=== PATIENT | female | born 1965 | race Caucasian/White ===

== ENCOUNTER 2016-11-23 20:44 | Emergency (ER) | payer MEDICARE, OTHER ==
--- NOTE | ~2016-11-23 | CR20 ---
[facility] A Service of [facility] & [facility] RADIOLOGY TEXT RESULTS PATIENT: ANDRES CAN LOCATION: CFTX : 63 UNIT #: [id number] AGE: [address]: Mehran Camarillo MD SEX: F ORDER DR: [id number] [facility] [address] [place], [place] [address] [id number] E MR#: [id number] Acc #: [id number] NAME: ANDRES CAN : 1965 SEX: F STUDY DATE/TIME: 11/23/2016 20:24 UNIT: [facility] ROOM: STUDY DESCRIPTION: CR Ankle Min 3 Views Lt Attending Physician: Mehran Camarillo M.D. Ordering Physician: Mehran Camarillo M.D. Primary Care Physician: Naomy Rosa A.P.R.N. MEDICAL IMAGING REPORT This report is preliminary unless electronic signature is present EXAM Left ankle 3 views HISTORY Ankle pain and swelling after twisting injury and fall today. FINDINGS 3 views of the left ankle demonstrate transverse fracture at the tip of the lateral malleolus with 2.0 mm separation of the fracture fragment which measures 10.0 mm in maximal dimension. Soft tissue swelling over the lateral malleolus. Remainder of the ankle alignment is satisfactory. Bony hypertrophic changes at the tip of the medial malleolus and along the posterior and plantar margins of the calcaneus. No dislocation. IMPRESSION Transverse fracture through the tip of the lateral malleolus with 2.0 mm separation of the 10.0 mm fracture fragment. Soft tissue swelling over the lateral malleolus. Dictated by... Rolly Fernández M.D. THIS IS AN ELECTRONICALLY VERIFIED REPORT Rolly Fernández M.D. at 11/24/2016 1:58 PM YEVGENIY/felicitas TD: 11/24/2016 13:05 JOB #: [id number] MEDICAL IMAGING REPORT COPY
[~2016-11-23 20:44] MED LIST: ACAI WEIGHT CO1 EACH PO; ADVAIR 250-501 EACH INH; AMARYL PO; AMITRIPTYLINE H75 MG PO; BROMELAIN500 MG PO; CALCIUM ACETAT667 M1 PO; CAYENNE PO; CHROMIUM PO; CINNAMON ALPHA1 EACH PO; CRANBERRY CONC1 EACH PO; CRESTOR5 MG PO; FERRO-TIME325 MG PO; FISH OIL 1,0001 CA2 PO; FLAX SEED OIL1000 M1 PO; FUROSEMIDE40 MG PO; GINGER ROOT550 M1 PO; GRAPE SEED EXT PO; GREEN TEA1 CAP PO; HUMIRA40 MG/0.1 SQ; LEVEMIR FL100 UNIT/1 SQ; LISINOPRIL10 MG PO; MAGNESIUM400 MG PO; MULTI VITAMIN1 EACH PO; NASONEX17 GM; PERCOCET 7.5-31 EACH PO; POTASSIUM CHLO10 ME1 PO; PROAIR HFA8.5 GM IN; PROTONIX PO; ROCALTROL0.5 MC1 PO; SUMATRIPTAN SU100 MG PO; SYNTHROID0.15 MG PO; TUMERIC PO; ULORIC40 MG PO; VICTOZA0.6 MG/0.1 SQ; WELCHOL3.75 GM PO
== END 2016-11-23 21:30 | disposition home or self-care (01) ==
LOC: CFTX 20:44
DX: S93.492A Sprain of other ligament of left ankle, initial encounter (principal); E11.9 Type 2 diabetes mellitus without complications; I10 Essential (primary) hypertension; J45.909 Unspecified asthma, uncomplicated; X58.XXXA Exposure to other specified factors, initial encounter; Y92.009 Unspecified place in unspecified non-institutional (private) residence as the place of occurrence of the external cause
CPT/HCPCS: 29540; 73610; 99283

== ENCOUNTER 2017-02-12 10:45 | Emergency (ER) | payer MEDICARE, OTHER ==
--- NOTE | ~2017-02-12 | CR2 ---
[facility] A Service of [facility] & [facility] RADIOLOGY TEXT RESULTS PATIENT: ANDRES CAN LOCATION: [facility] : 63 UNIT #: [id number] AGE: [address]: Geoffrey Cross MD SEX: F ORDER DR: [id number] [facility] [address] [place], [place] [address] [id number] E MR#: [id number] Acc #: [id number] NAME: ANDRES CAN : 1965 SEX: F STUDY DATE/TIME: 02/12/2017 11:35 UNIT: [facility] ROOM: STUDY DESCRIPTION: CR Abdomen Acute Series Attending Physician: Geoffrey Cross M.D. Ordering Physician: Geoffrey Cross M.D. Primary Care Physician: Naomy Rosa A.P.R.N. MEDICAL IMAGING REPORT This report is preliminary unless electronic signature is present EXAM Acute abdomen series with chest, total of 4 views, 02/12/2017 HISTORY Nausea, vomiting, fever, body aches for 2 days. FINDINGS Survey chest radiograph shows normal heart size. Lungs are clear. Flat and upright views of the abdomen show a lap band in appropriate position. Gas pattern of the abdomen and pelvis is normal. No evidence of organomegaly, mass or free air CONCLUSION Status post lap band. Negative chest and abdomen Dictated by... Aditya Stacy M.D. THIS IS AN ELECTRONICALLY VERIFIED REPORT Aditya Stacy M.D. at 02/12/2017 3:17 PM SHANON/krishna TD: 02/12/2017 14:36 JOB #: [id number] MEDICAL IMAGING REPORT Page 1 of 1 COPY
[2017-02-12] MEDS ORDERED: SYNTHROID137 MCG PO (10:59)
[2017-02-12] MEDS ORDERED: SINGULAIR PO (10:59)
[2017-02-12] MEDS ORDERED: INDERAL20 MG PO (10:59)
[2017-02-12] MEDS ORDERED: FUROSEMIDE40 MG PO (11:00)
[2017-02-12] MEDS ORDERED: OXAYDO7.5 MG PO (11:00)
[2017-02-12] MEDS ORDERED: AMITRIPTYLINE H75 MG PO (11:00)
[2017-02-12] MEDS ORDERED: CALCITRIOL0.5 MCG PO (11:01)
[2017-02-12] MEDS ORDERED: SUMATRIPTAN SU100 MG PO (11:01)
[2017-02-12] MEDS ORDERED: PROTONIX40 M1 PO (11:02)
[2017-02-12] MEDS ORDERED: FERROUS SULFAT325 MG PO (11:02)
[2017-02-12] MEDS ORDERED: CRESTOR5 MG PO (11:03)
[2017-02-12] MEDS ORDERED: WELCHOL3.75 GM PO (11:03)
[2017-02-12] MEDS ORDERED: ADVAIR 250-501 EACH INH (11:03)
[2017-02-12] MEDS ORDERED: MEMANTINE HCL10 MG PO (11:04)
[2017-02-12] MEDS ORDERED: CYMBALTA30 M1 PO (11:04)
[2017-02-12] MEDS ORDERED: PROAIR HFA8.5 GM INH (11:05)
[2017-02-12] MEDS ORDERED: ULORIC40 MG PO (11:05)
[2017-02-12] MEDS ORDERED: XELJANZ5 MG PO (11:06)
[2017-02-12] MEDS ORDERED: TRULICITY0.75 MG/0. SUBQ (11:06)
[2017-02-12 12:37] LABS: BASOPHIL% 0.2 % (0-2.5); EOSINOPHIL% 0.2 % (0.0-7.0); HEMATOCRIT 41.6 % (35.0-45.0); HEMOGLOBIN 13.4 gm/dL (12.0-16.0); LYMPHOCYTE# 0.5 X10e3 (1.0-3.5); LYMPHOCYTE% 8.6 % (17.0-45.0); MEAN CELL VOLUME 86.1 FL (83-96); MEAN CORPUSCULAR HEMOGLOBIN 27.8 PG (28-34); MEAN CORPUSCULAR HGB CONC 32.3 g/dL (30-36); MEAN PLATELET VOLUME 9.7 FL (6.5-11.5); MONOCYTE# 0.5 X10e3 (0-1.0); NEUTROPHIL# 4.9 X10e3 (1.5-7.1); PLATELET COUNT 197 X10e3 (140-420); RED BLOOD COUNT 4.84 X10e (3.90-5.30); RED CELL DISTRIBUTION WIDTH 14.5 % (11.0-15.5); WHITE BLOOD COUNT 5.9 X10e3 (4.0-10.5)
[2017-02-12 12:44] LABS: DIFF IND NO
[2017-02-12 13:03] LABS: BILIRUBIN, DIRECT 0.1 mg/dL (0.0-0.2); BILIRUBIN,TOTAL 0.1 mg/dL (0.2-2.0); BUN/CREATININE RATIO 15.71; CREATININE SERUM 1.4 mg/dL (0.6-1.4); GLOM FILT RATE Estimated 43.1 mL/min (>60); POTASSIUM 3.9 mmol/L (3.5-5.1); PROTEIN TOTAL SERUM 7.7 g/dL (6.0-8.3)
== END 2017-02-12 14:40 | disposition home or self-care (01) ==
LOC: CED 10:45
PROVIDERS: Emergency Medicine
DX: R11.10 Vomiting, unspecified (principal); E11.9 Type 2 diabetes mellitus without complications; Z88.2 Allergy status to sulfonamides; Z88.8 Allergy status to other drugs, medicaments and biological substances
CPT/HCPCS: 36415; 74022; 80048; 80076; 83690; 85025; 85379; 94640; 96361; 96374; 99284; J2405

== ENCOUNTER → 2017-04-10 | Outpatient (CLI) | payer MEDICARE ==
[~2017-04-10] MED LIST changes: +CALCITRIOL0.5 MCG PO; +CYMBALTA30 M1 PO; +FERROUS SULFAT325 MG PO; +INDERAL20 MG PO; +MEMANTINE HCL10 MG PO; +OXAYDO7.5 MG PO; +OXYCODONE-ACET1 EAC1 PO; +PROAIR HFA8.5 GM INH; +PROTONIX40 M1 PO; +SINGULAIR PO; +SYNTHROID137 MCG PO; +TRULICITY0.75 MG/0. SUBQ; +XELJANZ5 MG PO
[2017-04-10 12:22] LABS: BASOPHIL% 0.5 % (0-2.5); EOSINOPHIL# 0.1 X10e3 (0-0.7); EOSINOPHIL% 0.7 % (0.0-7.0); HEMATOCRIT 37.2 % (35.0-45.0); HEMOGLOBIN 12.1 gm/dL (12.0-16.0); LYMPHOCYTE# 2.2 X10e3 (1.0-3.5); MEAN CELL VOLUME 86.2 FL (83-96); MEAN CORPUSCULAR HGB CONC 32.5 g/dL (30-36); MEAN PLATELET VOLUME 9.5 FL (6.5-11.5); MONOCYTE# 0.7 X10e3 (0-1.0); MONOCYTE% 7.9 % (3.0-12.0); NEUTROPHIL# 6.1 X10e3 (1.5-7.1); NEUTROPHIL% 66.9 % (40-75); PLATELET COUNT 234 X10e3 (140-420); RED BLOOD COUNT 4.32 X10e (3.90-5.30); RED CELL DISTRIBUTION WIDTH 14.3 % (11.0-15.5); WHITE BLOOD COUNT 9.1 X10e3 (4.0-10.5)
[2017-04-10 12:25] LABS: DIFF IND NO
[2017-04-10 13:04] LABS: ALBUMIN SERUM 4.2 g/dL (3.5-5.0); BILIRUBIN,TOTAL 0.3 mg/dL (0.2-2.0); BUN/CREATININE RATIO 7.85; CALCIUM SERUM 8.3 mg/dL (8.4-10.2); CREATININE SERUM 1.4 mg/dL (0.6-1.4); GLOM FILT RATE Estimated 43.1 mL/min (>60); POTASSIUM 3.3 mmol/L (3.5-5.1); PROTEIN TOTAL SERUM 7.3 g/dL (6.0-8.3)
== END | disposition home or self-care (01) ==
LOC: CLAB 10:51
PROVIDERS: Nurse Practitioner Family
DX: E11.65 Type 2 diabetes mellitus with hyperglycemia (principal); N28.9 Disorder of kidney and ureter, unspecified; E03.9 Hypothyroidism, unspecified; M25.50 Pain in unspecified joint
CPT/HCPCS: 80053; 82306; 85025; 85652; 86140; 86200; 86430

== ENCOUNTER → 2017-04-10 | Outpatient (CLI) | payer MEDICARE ==
[2017-04-10 13:08] LABS: BUN/CREATININE RATIO 7.85; CREATININE SERUM 1.4 mg/dL (0.6-1.4); GLOM FILT RATE Estimated 43.1 mL/min (>60); MAGNESIUM 1.6 mg/dL (1.6-3.0); POTASSIUM 3.3 mmol/L (3.5-5.1)
[2017-04-10 13:09] LABS: CALCIUM SERUM 8.3 mg/dL (8.4-10.2); PROTEIN TOTAL SERUM 7.3 g/dL (6.0-8.3)
[2017-04-10 13:10] LABS: ALBUMIN SERUM 4.2 g/dL (3.5-5.0); BILIRUBIN,TOTAL 0.3 mg/dL (0.2-2.0)
== END | disposition home or self-care (01) ==
LOC: CLAB 10:46
DX: E78.00 Pure hypercholesterolemia, unspecified (principal); E11.9 Type 2 diabetes mellitus without complications
CPT/HCPCS: 36415; 80053; 80061; 82306; 83036; 83520; 83735; 85025; 85652; 86140; 86200; 86430

== ENCOUNTER 2017-05-13 05:33 | Inpatient (IN) | payer MEDICARE ==
[~2017-05-13] VITALS: Ht 162.6 cm; Wt 102.0 kg
--- NOTE | ~2017-05-13 | DS ---
Unit #: [id number] #: [id number] Patient: ANDRES CAN [id number] [address] [address] [id number] I MR#: [id number] NAME: ANDRES CAN ROOM: 239 Age: 51 Sex: F Admission Date: 05/13/2017 : 1965 Discharge Date: 05/17/2017 Attending Physician: Eduardo Guerra M.D. DISCHARGE SUMMARY PRIMARY REASON FOR ADMISSION Partial small bowel obstruction. HISTORY OF PRESENT ILLNESS The patient is a 51-year-old woman who presented to the emergency room with a 24-hour history of colicky abdominal pain associated with dry heaves and diarrhea. She denies any fevers, chills, hematemesis, or hematochezia. A CT scan showed a possible small bowel obstruction presumably due to adhesions. She does have a history of vaginal hysterectomy, tubal ligation, and Lap-Band placement. PHYSICAL EXAMINATION See admission H and P. HOSPITAL COURSE The patient was admitted. A nasogastric tube was placed. Shortly after admission, a small bowel followthrough was performed which was essentially benign. The nasogastric tube was removed. Patient was passing flatus. She was started on clear liquids and advanced to a regular diet which she tolerated well. She was deemed ready for discharge home on May 17. DISPOSITION Home. CONDITION Good. Dictated by... Juancarlos Villavicencio/cammie TD: 05/19/2017 14:09 JOB #: [id number] Unit #: [id number] #: [id number] Patient: ANDRES CAN DISCHARGE SUMMARY Page 1 of 1 X Edurado Guerra DISCHARGE SUMMARY
--- NOTE | ~2017-05-13 | CT4 ---
[facility] A Service of [facility] & [facility] RADIOLOGY TEXT RESULTS PATIENT: ANDRES CAN LOCATION: C2A 239-01 : 63 UNIT #: [id number] AGE: [address]: Eduardo Guerra SEX: F ORDER DR: [id number] [facility] [address] [place], [place] [address] [id number] I MR#: [id number] Acc #: [id number] NAME: ANDRES CAN : 1965 SEX: F STUDY DATE/TIME: 05/13/2017 6:54 UNIT: C2A ROOM: 239 STUDY DESCRIPTION: CT Abd and Pelv Wo Cont Attending Physician: Eduardo Guerra M.D. Ordering Physician: Griffin New M.D. Primary Care Physician: Primary Care Physician No MEDICAL IMAGING REPORT This report is preliminary unless electronic signature is present EXAM CT abdomen and pelvis without contrast 05/13/2017 HISTORY 51-year-old female abdominal cramping, vomiting, nausea, diarrhea for 1 day. Generalized abdominal pain. Stage III renal disease. COMPARISON Acute abdominal series 02/12/2017. No prior CT abdomen at this institution for comparison. PROCEDURE 3 mm noncontrast axial images through the abdomen and pelvis. Enteric contrast was not administered. Sagittal and coronal reformatted images were obtained. This CT examination was performed with one or more of the following radiation dose reduction techniques: automatic exposure control, adjustment of mA and/or kV according to patient size, and iterative reconstruction. FINDINGS ABDOMEN: There are multiple dilated small bowel loops with air-fluid levels. There appears to be a transition zone within the right mid abdomen, which is worrisome for a small bowel obstruction, potentially due to adhesion. The more distal small bowel in the right lower abdomen is decompressed. Mild colonic stool burden is present. No free air, pneumatosis or free fluid is identified. The liver is diffusely steatotic. Gastric band device is in place. Gallbladder, spleen, pancreas, adrenals and kidneys have an unremarkable noncontrast appearance. Appendix appears normal. PELVIS: Hysterectomy. Urinary bladder and rectum are normal. No pelvic adenopathy or free fluid is identified. STS. [facility] A Service of [facility] & [facility] RADIOLOGY TEXT RESULTS PATIENT: ANDRES CAN LOCATION: [facility] 239-01 : 63 UNIT #: [id number] AGE: [address]: Eduardo Guerra SEX: F ORDER DR: No acute or suspicious osseous abnormalities. Mild lower lumbar facet arthropathy. IMPRESSION 1. Findings consistent with the appearance of small bowel obstruction with transition zone in the right lower abdomen, potentially due to adhesion. 2. Hepatic steatosis. 3. Gastric band device in place. 4. Cholecystectomy. 5. Hysterectomy. Dictated by... Lexus Franco M.D. THIS IS AN ELECTRONICALLY VERIFIED REPORT Lexus Franco M.D. at 05/15/2017 8:51 AM BRITTANIE/carmencita TD: 05/13/2017 12:18 JOB #: [id number] MEDICAL IMAGING REPORT Page 1 of 1 COPY
--- NOTE | ~2017-05-13 | CR236 ---
[facility] A Service of [facility] & [facility] & [facility] RADIOLOGY TEXT RESULTS PATIENT: ANDRES CAN LOCATION: C2A 239-01 : 63 UNIT #: [id number] AGE: [address]: Eduardo Guerra SEX: F ORDER DR: [id number] [facility] [address] [place], [place] [address] [id number] I MR#: [id number] Acc #: [id number] NAME: ANDRES CAN : 1965 SEX: F STUDY DATE/TIME: 05/15/2017 12:00 UNIT: C2A ROOM: 239 STUDY DESCRIPTION: CR Small Bowel Sbft W Films Attending Physician: Eduardo Guerra M.D. Ordering Physician: Heri Patterson M.D. Primary Care Physician: No Primary Care Physician MEDICAL IMAGING REPORT This report is preliminary unless electronic signature is present EXAM Single view of the abdomen CLINICAL HISTORY Requested small bowel follow-through. FINDINGS A single overhead image was obtained about 15 minutes after ingestion of oral contrast and the patient was unable to continue the exam. This single view shows a normal bowel gas pattern and normal opacified proximal small bowel. Incomplete exam. Dictated by... Ventura Giles M.D. THIS IS AN ELECTRONICALLY VERIFIED REPORT Ventura Giles M.D. at 05/19/2017 9:09 AM SEFERINO/zack TD: 05/16/2017 08:36 JOB #: [id number] MEDICAL IMAGING REPORT Page 1 of 1 COPY
--- NOTE | ~2017-05-13 | CR4 ---
[facility] A Service of [facility] & [facility] RADIOLOGY TEXT RESULTS PATIENT: ANDRES CAN LOCATION: C2A 239-01 : 63 UNIT #: [id number] AGE: [address]: Eduardo Guerra SEX: F ORDER DR: [id number] [facility] [address] [place], [place] [address] [id number] I MR#: [id number] Acc #: [id number] NAME: ANDRES CAN : 1965 SEX: F STUDY DATE/TIME: 05/16/2017 08:00 UNIT: C2A ROOM: 239 STUDY DESCRIPTION: CR Abdomen Flat Upright or Dec Attending Physician: Eduardo Guerra M.D. Ordering Physician: Geoffrey Castillo M.D. Primary Care Physician: No Primary Care Physician MEDICAL IMAGING REPORT This report is preliminary unless electronic signature is present EXAM Abdomen supine and upright, 05/16/2017, 0800 hours. CLINICAL HISTORY Small bowel obstruction with symptoms for 3 days. COMPARISON Small bowel follow through, 05/15/2017. FINDINGS Supine and upright views demonstrate clothing artifact. There is a Lap-Band present. There is oral contrast material present which has progressed from the proximal small bowel on the single image from small bowel follow through 05/15/2017. There is no contrast within the colon. There are gas-filled mildly prominent loops of small bowel with a few air-fluid levels on the upright film which appear to be both within the small bowel and colon. IMPRESSION The oral contrast material administered for the attempted small bowel follow through 05/15/2017, has progressed distally and it is clearly present within distal small bowel and colon. There is gaseous distension of unopacified loops of small bowel with some air-fluid levels seen on the upright film which appear to be both in the small bowel and colon. Findings do not support in obstruction given the passage of contrast into the colon. Findings favor adynamic ileus. Dictated by... Syl Christine M.D. THIS IS AN ELECTRONICALLY VERIFIED REPORT Syl Christine M.D. at 05/17/2017 12:31 PM SMM/nuria [facility] A Service of [facility] & [facility] RADIOLOGY TEXT RESULTS PATIENT: ANDRES CAN LOCATION: A 239-01 : 63 UNIT #: [id number] AGE: [address]: Eduardo Guerra SEX: F ORDER DR: TD: 05/16/2017 18:10 JOB #: [id number] MEDICAL IMAGING REPORT Page 1 of 1 COPY
--- NOTE | ~2017-05-13 | CO ---
Unit #: [id number] #: [id number] Patient: ANDRES LOERA [id number] [address] [address] [id number] I MR#: [id number] NAME: ANDRES LOERA ROOM: 239 Age: 51 Sex: F Admission Date: 05/13/2017 : 1965 Attending Physician: Eduardo Guerra M.D. Primary Care Physician: Primary Care Physician No Consultation Date: 05/13/2017 CONSULTATION REPORT HISTORY OF PRESENT ILLNESS Ms. Loera is a 51-year-old female, who for the last 24 to 36 hours has been having colicky abdominal pain associated with dry heaves and diarrhea. She denied any fever, chills, hematemesis, hematochezia, or melena. She came to the emergency room and a CT scan showed a possible small bowel obstruction. It was centered in the right lower quadrant presumably due to adhesions. She does have a history of vaginal hysterectomy, tubal ligation, and Lap-Band placement. PAST MEDICAL HISTORY Hypertension, diabetes, paraesophageal hernia, rheumatoid arthritis, stage 3 kidney disease, previous tooth extraction, thyroidectomy, parathyroidectomy, previous cholecystectomy. ALLERGIES She is allergic to nonsteroidal anti-inflammatory agents, sulfa, Phenergan, and metformin. HOME MEDICATIONS Include Synthroid, Singulair, Inderal, Lasix, Elavil, calcitriol, sumatriptan, ferrous sulfate, Protonix, WelChol, Advair, Crestor, memantine, Cymbalta, ProAir, Uloric, Xeljanz, Trulicity, oxycodone. FAMILY HISTORY Diabetes and hypertension. SOCIAL HISTORY Nonsmoker. Nondrinker. REVIEW OF SYSTEMS As above. PHYSICAL EXAMINATION VITAL SIGNS: Temperature is 99.9, pulse 101, respirations 20, blood pressure 147/89. GENERAL: She is awake, alert, and oriented. Does not appear to be in acute distress. NG tube has had minimal output. HEENT: No carotid bruits. No scleral icterus. CARDIAC: Regular rhythm without murmur. LUNGS: Clear. ABDOMEN: Nondistended, nontender. No involuntary or voluntary guarding. EXTREMITIES: No edema. NEUROLOGIC: Grossly intact. No skin rashes or lesions. Unit #: [id number] #: [id number] Patient: ANDRES LOERA DIAGNOSTIC STUDIES LABORATORY RESULTS: BUN and creatinine 13 and 1.6, which is baseline. Electrolytes are within normal limits except for calcium is 6.9. Liver chemistries; total bilirubin 0.5, AST and ALT 52 and 68. Amylase 11, lipase 16. Hemoglobin A1c 6.2. White count 59406, hemoglobin 13.9, and platelets 208,000. Urinalysis is negative for infection. IMAGING STUDIES: CT scan as discussed. ASSESSMENT AND PLAN Possible partial small bowel obstruction versus gastroenteritis. The patient will be admitted and hydrated. NG has been placed for decompression. Stool studies have been ordered. We will stimulate her bowel and repeat her films in the morning and consider small-bowel follow-through if she does not have complete resolution of her bowel obstruction. Thank you very much. Dictated by... Juancarlos Kaur/radha TD: 05/14/2017 02:06 JOB #: [id number] CONSULTATION REPORT Page 1 of 1 X Geoffrey Castillo MD X CONSULTATION REPORT
--- NOTE | ~2017-05-13 | CR4 ---
[facility] A Service [facility] RADIOLOGY TEXT RESULTS PATIENT: ANDRES CAN LOCATION: C2A : 63 UNIT #: [id number] AGE: [address]: Eduardo Guerra SEX: F ORDER DR: [id number] [id number] [place], [place] [address] [id number] I MR#: [id number] Acc #: [id number] NAME: ANDRES CAN : 1965 SEX: F STUDY DATE/TIME: 05/14/2017 7:38 UNIT: [facility] ROOM: 239 STUDY DESCRIPTION: CR Abdomen Flat Upright or Dec Attending Physician: Eduardo Guerra M.D. Ordering Physician: Eduardo Guerra M.D. Primary Care Physician: Primary Care Physician No MEDICAL IMAGING REPORT This report is preliminary unless electronic signature is present EXAM Flat and upright abdomen INDICATIONS Abdominal pain, cramping, diarrhea and nausea for [address] showing small bowel obstruction. COMPARISON CT scan from yesterday. FINDINGS Redemonstrated dilated loops of small bowel with air-fluid levels on upright view most consistent with small bowel obstruction. The overall appearance does not appear significantly changed. Patient has a lap-band in place. There is also an NG tube in place and a portion of the tube is looping above the patient's LAP-band. IMPRESSION No significant change in appearance of the bowel gas pattern consistent with small bowel obstruction. Dictated by... Scott Huff M.D. THIS IS AN ELECTRONICALLY VERIFIED REPORT Scott Huff M.D. at 05/14/2017 5:28 PM ARS/chirag TD: 05/14/2017 09:04 JOB #: [id number] [facility] A Service [facility] RADIOLOGY TEXT RESULTS PATIENT: ANDRES CAN LOCATION: C2A : 63 UNIT #: [id number] AGE: [address]: Eduardo Guerra SEX: F ORDER DR: MEDICAL IMAGING REPORT Page 1 of 1 COPY
--- NOTE | ~2017-05-13 | CR2 ---
[facility] A Service of [facility] & [facility] RADIOLOGY TEXT RESULTS PATIENT: ANDRES CAN LOCATION: C2A 239-01 : 63 UNIT #: [id number] AGE: [address]: Eduardo Guerra SEX: F ORDER DR: [id number] [facility] [address] [place], [place] [address] [id number] I MR#: [id number] Acc #: [id number] NAME: ANDRES CAN : 1965 SEX: F STUDY DATE/TIME: 05/15/2017 7:32 UNIT: C2A ROOM: 239 STUDY DESCRIPTION: CR Abdomen Acute Series Attending Physician: Eduardo Guerra M.D. Ordering Physician: Heri Patterson M.D. Primary Care Physician: Primary Care Physician No MEDICAL IMAGING REPORT This report is preliminary unless electronic signature is present EXAM Acute abdominal series 05/15/2017 HISTORY Abdomen pain, nausea, vomiting, diarrhea. 3 days duration. FINDINGS AP radiograph of the chest is presented with supine and upright radiographs of the abdomen and pelvis. Comparison abdominal radiographs 05/14/2017. Chest radiograph is poor in quality. Clothing artifacts overlie relevant anatomy. Heart upper limits of normal in size. Mediastinal contours normal overall. The lungs are well inflated. Linear scarring or atelectasis left lung base. Lungs otherwise clear. No pleural effusion or pneumothorax. No suspicious nodule. Lap-Band device in place. No change. Band component appropriately oriented at level of gastroesophageal junction. Catheter component and port component appear radiographically intact. Interval removal of enteric tube. Bowel gas pattern abnormal. Abnormally dilated loops of small bowel disproportionately dilated relative to colonic caliber. Small bowel loops measure up to about 3.5 cm in diameter. Air and stool are seen in colon. The disproportionate dilatation of small bowel raises concern for possible partial small bowel obstruction. There is no free air. Where visible, the solid organ contours are unremarkable. Small bowel and colon could be further evaluated with CT examination, preferably with enteric contrast or with standard small-bowel follow-through. Bony structures show no acute abnormality. Dictated by... Aditya Castro M.D. STS. [facility] A Service of [facility] & [facility] RADIOLOGY TEXT RESULTS PATIENT: ANDRES CAN LOCATION: [facility] 239- : 63 UNIT #: [id number] AGE: [address]: Eduardo Guerra SEX: F ORDER DR: THIS IS AN ELECTRONICALLY VERIFIED REPORT Aditya Castro M.D. at 05/16/2017 5:54 PM Ty TD: 05/15/2017 09:24 JOB #: [id number] MEDICAL IMAGING REPORT Page 1 of 1 COPY
--- NOTE | ~2017-05-13 | CR7 ---
[facility] A Service of [place] & [facility] RADIOLOGY TEXT RESULTS PATIENT: ANDRES CAN LOCATION: C2A 239-01 : 63 UNIT #: [id number] AGE: [address]: Eduardo Guerra SEX: F ORDER DR: [id number] [facility] [address] [place], [place] [address] [id number] I MR#: [id number] Acc #: [id number] NAME: ANDRES CAN : 1965 SEX: F STUDY DATE/TIME: 05/14/2017 8:21 UNIT: C2A ROOM: 239 STUDY DESCRIPTION: CR Abdomen Single AP View Attending Physician: Eduardo Guerra M.D. Ordering Physician: Aditya Raphael M.D. Primary Care Physician: No Primary Care Physician MEDICAL IMAGING REPORT This report is preliminary unless electronic signature is present EXAM Single limited AP view of the abdomen. INDICATIONS 51-year-old female with history of a small bowel obstruction. She presented for a Gastrografin small bowel followthrough via the NG tube. The fluoroscopy time was 2.4 minutes and 1 fluoroscopic image was taken. FINDINGS Noted on the outsole tacker image from earlier today was that the patient's NG tube is looped above the LAP-band and the side hole of the NG tube is located above the LAP-band. Because of this, if Gastrografin was administered, a large portion of it would be administered into the esophagus and the patient would be at marked risk for aspiration. Therefore, I attempted to reduce the looped within the NG tube, but I was unsuccessful in reducing the loop and advancing the tube. I offered to remove and replace the tube, but the patient refused. The Gastrografin small bowel followthrough was therefore not performed. IMPRESSION Patient's a NG tube loops above her lap-band with the side-hole of the NG tube located above the LAP-band and, therefore, cannot perform a small bowel followthrough injection through the NG tube has a large amount of contrast would leave the side hole and enter the esophagus and the patient would be at risk for aspiration. I offered to remove and replace the NG tube, but the patient refused. I did try to reduce the loop and advance the tube further into the stomach so that both the side hole and end hole of the tube would be in the stomach below the LAP-band, but this was unsuccessful. Dictated by... Scott Huff M.D. [facility] A Service of [facility] RADIOLOGY TEXT RESULTS PATIENT: ANDRES CAN LOCATION: [facility] 239- : 63 UNIT #: [id number] AGE: [address]: Eduardo Guerra SEX: F ORDER DR: THIS IS AN ELECTRONICALLY VERIFIED REPORT Scott Huff M.D. at 05/14/2017 5:29 PM WEN/amy TD: 05/14/2017 12:22 JOB #: [id number] MEDICAL IMAGING REPORT Page 1 of 1 COPY
[~2017-05-13 05:33] MED LIST changes: -OXYCODONE-ACET1 EAC1 PO
[2017-05-13 07:31] LABS: BASOPHIL% 0.3 % (0-2.5); DIFF IND NO; EOSINOPHIL% 0.4 % (0.0-7.0); HEMATOCRIT 42.3 % (35.0-45.0); HEMOGLOBIN 13.9 gm/dL (12.0-16.0); LYMPHOCYTE# 1.3 X10e3 (1.0-3.5); LYMPHOCYTE% 10.6 % (17.0-45.0); MEAN CORPUSCULAR HEMOGLOBIN 28.4 PG (28-34); MEAN PLATELET VOLUME 9.4 FL (6.5-11.5); MONOCYTE# 1.2 X10e3 (0-1.0); MONOCYTE% 9.8 % (3.0-12.0); NEUTROPHIL# 9.4 X10e3 (1.5-7.1); NEUTROPHIL% 78.9 % (40-75); PLATELET COUNT 208 X10e3 (140-420); RED BLOOD COUNT 4.92 X10e (3.90-5.30); RED CELL DISTRIBUTION WIDTH 14.1 % (11.0-15.5); WHITE BLOOD COUNT 11.9 X10e3 (4.0-10.5)
[2017-05-13 07:57] LABS: ALBUMIN SERUM 4.7 g/dL (3.5-5.0); BILIRUBIN, DIRECT 0.1 mg/dL (0.0-0.2); BILIRUBIN,INDIRECT 0.4 mg/dL (0.0-0.9); BILIRUBIN,TOTAL 0.5 mg/dL (0.2-2.0); BUN/CREATININE RATIO 8.12; CALCIUM SERUM 6.9 mg/dL (8.4-10.2); CREATININE SERUM 1.6 mg/dL (0.6-1.4); GLOM FILT RATE Estimated 36.7 mL/min (>60); POTASSIUM 3.6 mmol/L (3.5-5.1); PROTEIN TOTAL SERUM 8.4 g/dL (6.0-8.3)
[2017-05-13 08:00] LABS: URINE SOURCE CLEAN CATCH
[2017-05-13 08:05] LABS: URINE APPEARANCE CLEAR; URINE BILIRUBIN NEG (NEG); URINE BLOOD NEG (NEG); URINE COLOR YELLOW; URINE GLUCOSE NEG (NEG); URINE KETONE NEG (NEG); URINE LEUKOCYTE ESTERASE NEG (NEG); URINE NITRATE NEG (NEG); URINE PH 5.5 (5-8); URINE PROTEIN NEG (NEG); URINE SPECIFIC GRAVITY 1.008 (1.003-1.035); URINE UROBILINOGEN 0.2 MG/DL (NEG)
[2017-05-13 08:07] LABS: CULTURE INDICATED? NO
[2017-05-13] MEDS ORDERED: OXYCODONE-ACET1 EAC1 PO (08:38)
[2017-05-14 12:11] LABS: CREATININE SERUM 1.5 mg/dL (0.6-1.4); GLOM FILT RATE Estimated 39.7 mL/min (>60); POTASSIUM 3.9 mmol/L (3.5-5.1)
[2017-05-14 12:25] LABS: MAGNESIUM 1.3 mg/dL (1.6-3.0); PHOSPHOROUS 3.3 mg/dL (2.5-4.6)
[2017-05-14 13:52] LABS: HEMATOCRIT 41.7 % (35.0-45.0); HEMOGLOBIN 13.4 gm/dL (12.0-16.0); MEAN CELL VOLUME 86.3 FL (83-96); MEAN CORPUSCULAR HEMOGLOBIN 27.6 PG (28-34); MEAN PLATELET VOLUME 9.2 FL (6.5-11.5); RED BLOOD COUNT 4.83 X10e (3.90-5.30); RED CELL DISTRIBUTION WIDTH 14.3 % (11.0-15.5); WHITE BLOOD COUNT 12.5 X10e3 (4.0-10.5)
== END 2017-05-17 15:30 | disposition home or self-care (01) | DRG 390 ==
LOC: CED 05:33 → CEDOF 08:40 → CED 09:17 → C2A 11:51 → CEDOF 11:51 → C2A 05-17 15:30
PROVIDERS: Emergency Medicine; Specialist; Surgery
DX: K56.5 Intestinal adhesions [bands] with obstruction (postinfection) (principal); E11.22 Type 2 diabetes mellitus with diabetic chronic kidney disease; N18.3 Chronic kidney disease, stage 3 (moderate); I12.9 Hypertensive chronic kidney disease with stage 1 through stage 4 chronic kidney disease, or unspecified chronic kidney disease; M06.9 Rheumatoid arthritis, unspecified; Z83.3 Family history of diabetes mellitus; Z82.49 Family history of ischemic heart disease and other diseases of the circulatory system; Z90.710 Acquired absence of both cervix and uterus; Z90.49 Acquired absence of other specified parts of digestive tract; Z98.51 Tubal ligation status; Z98.84 Bariatric surgery status
CPT/HCPCS: 36415; 51701; 74000; 74020; 74022; 74176; 74250; 80048; 80076; 81003; 82150; 82274; 82947; 83630; 83690; 83735; 84100; 84443; 84703; 85025; 85027; 87045; 87427; 87493; 87899; 94640; 94664; 94760; 96361; 96374; 96376; 99291; C9113; J2270; J2405

== ENCOUNTER 2017-05-17 19:23 | Emergency (ER) | payer MEDICARE ==
[~2017-05-17] VITALS: Ht 162.6 cm; Wt 102.0 kg
--- NOTE | ~2017-05-17 | EKG ---
PATIENT: ANDRES CAN UNIT #: [id number] Ventricular Rate: 91 BPM Atrial Rate: 91 BPM P-R Interval: 150 ms QRS Duration: 84 ms Q-T Interval: 392 ms QTC Calculation(Bezet): 482 ms P [place]: 36 degrees Calculated R [place]: -55 degrees Calculated T [place]: 19 degrees Diagnosis Line: Normal sinus rhythm Diagnosis Line: Left anterior fascicular block Diagnosis Line: Nonspecific T wave abnormality Diagnosis Line: Abnormal ECG Diagnosis Line: When compared with ECG of 10-MAR-2015 08:58, Diagnosis Line: No significant change was found Diagnosis Line: Confirmed by JACKI CERDA MD ([id number]) on Diagnosis Line: 05/19/2017 4:54:48 PM INTERPRETING MD: HOA
--- NOTE | ~2017-05-17 | CR2 ---
[facility] A Service of [facility] RADIOLOGY TEXT RESULTS PATIENT: ANDRES CAN LOCATION: [facility] : 63 UNIT #: [id number] AGE: [address]: Oh De Leon MD SEX: F ORDER DR: [id number] [facility]. [place], [place] [address] [id number] E MR#: [id number] Acc #: [id number] NAME: ANDRES CAN : 1965 SEX: F STUDY DATE/TIME: 05/17/2017 20:05 UNIT: [facility] ROOM: STUDY DESCRIPTION: CR Abdomen Acute Series Attending Physician: Oh De Leon M.D. Ordering Physician: Oh De Leon M.D. Primary Care Physician: Primary Care Physician No MEDICAL IMAGING REPORT This report is preliminary unless electronic signature is present EXAM Acute abdominal series, 05/17/2017 COMPARISON Abdomen 2 views, 05/16/2017 HISTORY Abdominal pain, nausea and vomiting followed by diarrhea for 5 days. FINDINGS Frontal view of the chest was obtained. Lungs are well aerated. Heart, mediastinum and bones are unremarkable. Four images of two views of the abdomen were obtained. There are dilated bowel loops noted with contrast in the right and transverse colon. Degenerative changes are noted in the spine. IMPRESSION 1. No acute cardiopulmonary disease. 2. There are some dilated bowel loops involving small and large bowel. Though there could be possibility for bowel obstruction involving the small bowel, given that there is oral contrast in the right colon and transverse colon, it is not a complete obstruction. Continued follow-up is suggested. No obvious free air is noted under the diaphragm. The patient has had Lap-Band surgery done. The angle between the vertical midline axis of the adjacent spine and the long axis of the Lap-Band is 42 degrees. Dictated by.Olivia. Fredi Graf M.D. THIS IS AN ELECTRONICALLY VERIFIED REPORT [facility] A Service [facility] RADIOLOGY TEXT RESULTS PATIENT: ANDRES CAN LOCATION: [place] : 63 UNIT #: [id number] AGE: [address]: Oh De Leon MD SEX: F ORDER DR: Fredi Graf M.D. at 05/18/2017 9:16 PM CPR/felicitas TD: 05/18/2017 20:15 JOB #: [id number] MEDICAL IMAGING REPORT Page 1 of 1 COPY
[~2017-05-17 19:23] MED LIST changes: +OXYCODONE-ACET1 EAC1 PO
[2017-05-17 20:26] LABS: BASOPHIL% 0.2 % (0-2.5); EOSINOPHIL% 0.2 % (0.0-7.0); HEMATOCRIT 40.5 % (35.0-45.0); HEMOGLOBIN 13.1 gm/dL (12.0-16.0); LYMPHOCYTE# 1.4 X10e3 (1.0-3.5); LYMPHOCYTE% 13.7 % (17.0-45.0); MEAN CELL VOLUME 86.3 FL (83-96); MEAN CORPUSCULAR HGB CONC 32.4 g/dL (30-36); MEAN PLATELET VOLUME 9.6 FL (6.5-11.5); MONOCYTE# 1.2 X10e3 (0-1.0); MONOCYTE% 11.6 % (3.0-12.0); NEUTROPHIL# 7.5 X10e3 (1.5-7.1); NEUTROPHIL% 74.3 % (40-75); PLATELET COUNT 230 X10e3 (140-420); RED BLOOD COUNT 4.69 X10e (3.90-5.30); RED CELL DISTRIBUTION WIDTH 14.2 % (11.0-15.5); WHITE BLOOD COUNT 10.1 X10e3 (4.0-10.5)
[2017-05-17 20:32] LABS: DIFF IND NO
[2017-05-17 20:53] LABS: ALBUMIN SERUM 4.2 g/dL (3.5-5.0); BILIRUBIN, DIRECT 0.1 mg/dL (0.0-0.2); BILIRUBIN,INDIRECT 0.7 mg/dL (0.0-0.9); BILIRUBIN,TOTAL 0.8 mg/dL (0.2-2.0); CREATININE SERUM 1.4 mg/dL (0.6-1.4); GLOM FILT RATE Estimated 43.1 mL/min (>60); POTASSIUM 3.4 mmol/L (3.5-5.1); PROTEIN TOTAL SERUM 8.2 g/dL (6.0-8.3)
[2017-05-17 20:56] LABS: CALCIUM SERUM 5.8 mg/dL (8.4-10.2)
[2017-05-18 00:37] LABS: URINE SOURCE CLEAN CATCH
[2017-05-18 00:41] LABS: URINE APPEARANCE CLEAR; URINE BILIRUBIN NEG (NEG); URINE BLOOD NEG (NEG); URINE COLOR YELLOW; URINE GLUCOSE NEG (NEG); URINE KETONE NEG (NEG); URINE LEUKOCYTE ESTERASE NEG (NEG); URINE NITRATE NEG (NEG); URINE PROTEIN TRACE (NEG); URINE UROBILINOGEN 0.2 MG/DL (NEG)
[2017-05-18 00:42] LABS: CULTURE INDICATED? NO
== END 2017-05-18 01:20 | disposition home or self-care (01) ==
LOC: CED 19:23
PROVIDERS: Emergency Medicine
DX: E87.6 Hypokalemia (principal); I12.9 Hypertensive chronic kidney disease with stage 1 through stage 4 chronic kidney disease, or unspecified chronic kidney disease; N18.9 Chronic kidney disease, unspecified; F41.9 Anxiety disorder, unspecified; Z79.899 Other long term (current) drug therapy
CPT/HCPCS: 36415; 51702; 74022; 80048; 80076; 81003; 83690; 85025; 93005; 96361; 96365; 96375; 99284; J0610; J2405

== ENCOUNTER 2017-05-19 10:41 | Emergency (ER) | payer MEDICARE ==
[~2017-05-19] VITALS: Ht 162.6 cm; Wt 102.0 kg
[2017-05-19 11:49] LABS: BASOPHIL% 0.2 % (0-2.5); EOSINOPHIL% 0.3 % (0.0-7.0); HEMATOCRIT 39.5 % (35.0-45.0); LYMPHOCYTE# 1.4 X10e3 (1.0-3.5); LYMPHOCYTE% 11.8 % (17.0-45.0); MEAN CELL VOLUME 86.2 FL (83-96); MEAN CORPUSCULAR HEMOGLOBIN 28.5 PG (28-34); MEAN PLATELET VOLUME 9.1 FL (6.5-11.5); MONOCYTE# 0.9 X10e3 (0-1.0); MONOCYTE% 7.5 % (3.0-12.0); NEUTROPHIL# 9.8 X10e3 (1.5-7.1); NEUTROPHIL% 80.2 % (40-75); PLATELET COUNT 241 X10e3 (140-420); RED BLOOD COUNT 4.58 X10e (3.90-5.30); WHITE BLOOD COUNT 12.2 X10e3 (4.0-10.5)
[2017-05-19 11:55] LABS: DIFF IND NO
[2017-05-19 12:17] LABS: ALBUMIN SERUM 4.2 g/dL (3.5-5.0); BILIRUBIN, DIRECT 0.1 mg/dL (0.0-0.2); BILIRUBIN,INDIRECT 0.8 mg/dL (0.0-0.9); BILIRUBIN,TOTAL 0.9 mg/dL (0.2-2.0); BUN/CREATININE RATIO 7.5; CALCIUM SERUM 6.7 mg/dL (8.4-10.2); CREATININE SERUM 1.2 mg/dL (0.6-1.4); GLOM FILT RATE Estimated 51.9 mL/min (>60); POTASSIUM 3.7 mmol/L (3.5-5.1)
== END 2017-05-19 13:06 | disposition home or self-care (01) ==
LOC: CED 10:41
DX: R10.84 Generalized abdominal pain (principal); R11.2 Nausea with vomiting, unspecified; E11.9 Type 2 diabetes mellitus without complications; J45.909 Unspecified asthma, uncomplicated; G43.909 Migraine, unspecified, not intractable, without status migrainosus; G40.909 Epilepsy, unspecified, not intractable, without status epilepticus; Z90.710 Acquired absence of both cervix and uterus; Z98.890 Other specified postprocedural states; Z88.2 Allergy status to sulfonamides; Z88.8 Allergy status to other drugs, medicaments and biological substances; Z79.899 Other long term (current) drug therapy
CPT/HCPCS: 36415; 80048; 80076; 83690; 85025; 99284

== ENCOUNTER 2017-05-20 19:22 | Emergency (ER) | payer MEDICARE ==
[~2017-05-20] VITALS: Ht 162.6 cm; Wt 102.0 kg
== END 2017-05-20 21:20 | disposition left against medical advice (07) ==
LOC: CED 19:22
DX: Z53.21 Procedure and treatment not carried out due to patient leaving prior to being seen by health care provider (principal)